=== PATIENT | male | born 1985 | race Caucasian/White ===

== ENCOUNTER 2019-10-05 12:35 | Emergency (ER) | payer OTHER ==
[~2019-10-05] VITALS: Ht 185.4 cm; Wt 108.9 kg
[~2019-10-05 12:35] MED LIST: HYDROCODONE-AP1 EAC6 PO; NAPROSYN500 MG PO
[2019-10-05 12:58] LABS: ABSOLUTE BASOPHILS 0.1 thou/uL (0.0-0.2); ABSOLUTE EOSINOPHILS 0.2 thou/uL (0.0-0.7); ABSOLUTE LYMPHOCYTES 2.2 thou/uL (0.8-5.3); ABSOLUTE MONOCYTES 0.7 thou/uL (0.0-1.2); ABSOLUTE NEUTROPHILS 3.5 thou/uL (1.6-8.1); EOSINOPHILS 3.2 %; HEMATOCRIT 46.6 % (42.0-52.0); HEMOGLOBIN 16.5 gm/dL (14.0-18.0); LYMPHOCYTES 32.6 %; MCH 30.2 pg (26.0-34.0); MCHC 35.4 g/dL (28.0-37.0); MCV 85.3 fL (80.0-100.0); MONOCYTES 10.4 %; MPV 8.9 fl. (7.2-11.1); NUCLEATED RBCS 0 /100WBC; PLATELET COUNT* 198 thou/uL (150-400); POLYS 52.8 %; RBC 5.46 mil/uL (4.50-6.00); RDW-CV 13.1 % (10.5-14.5); WBC 6.7 thou/uL (4.0-11.0)
[2019-10-05 13:11] LABS: CALCIUM 8.7 mg/dL (8.5-10.1); CREATININE 1.3 mg/dL (0.6-1.3)
[2019-10-05 13:12] LABS: APTT 23.7 Seconds (25.0-31.3); INR 0.9; PROTIME 9.5 Seconds (9.20-11.50)
[2019-10-05 13:25] LABS: CK-MB MASS 0.7 ng/mL (<0.5-3.6); MAGNESIUM 2.2 mg/dL (1.8-2.4); TOTAL BILIRUBIN 0.5 mg/dL (<0.1-1.0); TOTAL PROTEIN 7.8 g/dL (6.4-8.2)
[2019-10-05 13:57] VITALS: BP 153/75
--- NOTE | 2019-10-05 15:04 | EKG ---
[place] [address] ELECTROCARDIOGRAM REPORT Name: JOY ALEXANDER Room: [facility]#: [id number] Admission: 10/05/19 Attend Phys: Discharge: 10/05/19 Date of : 87 Date of Service: 10/05/19 1241 Report #: [id number] THIS REPORT FOR: //name// [facility] ED Test Date: 2019-10-05 Test Time: 12:41:20 Pat Name: JOY ALEXANDER Department: Room: Gender: Social Media Strategist: : 1985 Requested By: Wilson Conteh Order Number: [id number] MD: Александр Diaz Measurements Intervals Sikes Rate: 70 P: 37 UT: 146 QRS: 253 QRSD: 101 T: 39 QT: 378 QTc: 408 Interpretive Statements Sinus rhythm LAD, consider left anterior fascicular block Baseline wander in lead(s) II,III,aVR,aVF No previous ECG available for comparison Electronically Signed On 10-05-2019 15:04:05 CDT by Александр Diaz [email or web address] <ELECTRONICALLY SIGNED> By: Александр Diaz MD, [facility] 10/05/19 1504 1241 1241 Александр Diaz MD, [facility] /EPI
== END 2019-10-05 13:58 | disposition home or self-care (01) ==
LOC: M.ERS 12:35
PROVIDERS: Family Medicine
DX: R07.89 Other chest pain (principal)